=== PATIENT | female | born 1970 | race Caucasian/White ===

== ENCOUNTER 2017-03-16 09:58 | Emergency (ER) | payer OTHER ==
[~2017-03-16] VITALS: Ht 160 cm; Wt 76.4 kg
[~2017-03-16 09:58] MED LIST: FOLI1TAB15 PO; IBUP-676 PO; METH2.5T6 PO; VIT. D; [UNRECOGNIZED DRUG - CODE] PO
[2017-03-16] MEDS ORDERED: ALBUTEROL SULFATE 2.5 MG/0.5 ML NEB SOLUTION NEB ONE (11:00)
[2017-03-16] MEDS ORDERED: IPRATROPIUM BROMIDE 0.5 MG/2.5 ML NEB SOLUTION NEB ONE (11:00)
[2017-03-16] MEDS ORDERED: IBUPROFEN 800 MG TABLET PO ONE (11:00)
[2017-03-16 12:34] VITALS: BP 118/81
== END 2017-03-16 12:35 | disposition home or self-care (01) ==
LOC: EMS 09:59
DX: J45.909 Unspecified asthma, uncomplicated (principal); J20.9 Acute bronchitis, unspecified; R11.2 Nausea with vomiting, unspecified; Z88.0 Allergy status to penicillin
CPT/HCPCS: 71020; 94640; 99284; J7613

== ENCOUNTER 2017-08-30 01:07 | Emergency (ER) | payer OTHER ==
[~2017-08-30] VITALS: Ht 162.6 cm; Wt 65.9 kg
[~2017-08-30 01:07] MED LIST changes: -FOLI1TAB15 PO; -METH2.5T6 PO; -VIT. D; -[UNRECOGNIZED DRUG - CODE] PO
[2017-08-30] MEDS ORDERED: IPRATROPIUM BROMIDE 0.5 MG/2.5 ML NEB SOLUTION NEB ONE (01:45)
[2017-08-30] MEDS ORDERED: ALBUTEROL SULFATE 5 MG/ML 20 ML NEB SOLN [BULK] NEB ONE (01:45)
[2017-08-30] MEDS ORDERED: 0.9% SODIUM CHLORIDE 5 ML NEB SOLUTION NEB ONE (01:45)
[2017-08-30 03:52] VITALS: BP 123/67
== END 2017-08-30 03:54 | disposition home or self-care (01) ==
LOC: EMS 01:08
DX: J40 Bronchitis, not specified as acute or chronic (principal); Z88.0 Allergy status to penicillin
CPT/HCPCS: 71046; 94644; 99285; J7611

== ENCOUNTER 2018-03-12 20:43 | Emergency (ER) | payer OTHER ==
[~2018-03-12] VITALS: Ht 152.4 cm; Wt 71.8 kg
[2018-03-12] MEDS ORDERED: ONDANSETRON HCL 4 MG/2 ML VIAL IM ONE (23:30)
[2018-03-12] MEDS ORDERED: HYDROmorphone 2 MG/ML SYRINGE IM ONE (23:30)
[2018-03-12 23:53] LABS: APPEARANCE,URINE CLEAR (CLEAR); BILIRUBIN,URINE NEGATIVE (NEGATIVE); GLUCOSE, URINE (UA) NEGATIVE (NEGATIVE); KETONES,URINE NEGATIVE (NEGATIVE); LEUKOCYTE ESTERASE ,URINE NEGATIVE (NEGATIVE); NITRATE,URINE NEGATIVE (NEGATIVE); OCCULT BLOOD,URINE SMALL (NEGATIVE); PROTEIN,URINE NEGATIVE (NEGATIVE); UROBILINOGEN,URINE 0.2 mg/dL (<=1.0)
[2018-03-13] LABS: BACTERIA,URINE None Seen /HPF (None Seen); SQUAMOUS EPITHELIAL CELL,UR Rare /LPF (None Seen); WBC,URINE 0-2 /HPF (0-5)
[2018-03-13 01:54] VITALS: BP 124/73
== END 2018-03-13 01:56 | disposition home or self-care (01) ==
LOC: EMS 20:43
DX: M54.5 Low back pain (principal); J45.909 Unspecified asthma, uncomplicated; Z88.0 Allergy status to penicillin
CPT/HCPCS: 72070; 72100; 81001; 81025; 96372; 99284; J1170; J2405